=== PATIENT | male | born 1990 | race African-American/Black ===

== ENCOUNTER 2017-04-30 03:00 | Emergency (ER) | payer SELFPAY ==
[~2017-04-30] VITALS: Ht 172.7 cm; Wt 59.0 kg
[2017-04-30 03:30] VITALS: BP 128/78
== END 2017-04-30 04:31 | disposition left against medical advice (07) ==
LOC: ER 03:00
DX: T78.40XA Allergy, unspecified, initial encounter (principal); Z53.21 Procedure and treatment not carried out due to patient leaving prior to being seen by health care provider

== ENCOUNTER 2017-04-30 14:21 | Emergency (ER) | payer SELFPAY ==
[~2017-04-30] VITALS: Ht 172.7 cm; Wt 58.5 kg
[2017-04-30 14:26] VITALS: BP 117/58
[2017-04-30] MEDS ORDERED: cefTRIAXone SOD 1,000 MG VL IM ONE (15:00)
== END 2017-04-30 15:20 | disposition home or self-care (01) ==
LOC: ER 14:21
DX: L73.8 Other specified follicular disorders (principal); Z88.8 Allergy status to other drugs, medicaments and biological substances
CPT/HCPCS: 96372; 99283; J0696